=== PATIENT | female | born 1985 | race African-American/Black ===

== ENCOUNTER 2020-06-26 05:20 | Inpatient (IN) | payer BC, SELFPAY ==
[2020-06-26] VITALS (77 sets, daily range): BP systolic 101–134; BP diastolic 51–93; PULSE 76–115; RESP 18–20; TEMP 36.6–37.1; O2SAT 100; BMI 28.9
--- NOTE | 2020-06-26 05:20 | LDADM ---
This patient, Janessa Harrison, was admitted to Labor/Delivery/Recovery 104 on 06/26/20 at 05:20. Plans for labor, pain management and were discussed with patient. Patient/family oriented to hospital policies and general routines including ID bracelet, bed and alarms, visiting hours, pain management, procedures, bathroom and other care routines, personal items, smoking policy, room service/diet and guest tray routines, infant security routines, and visiting hours. Patient/Family are encouraged to report perceived risks to care and to ask questions if they do not understand what they are told or what they should do. See OBIX for further documentation.
[2020-06-26 05:58] LABS: Basophils Percent Auto 0.3 % (0.2-1.2); Eosinophils Absolute Auto 0.1 K/mm3 (0-0.3); Eosinophils Percent Auto 1.4 % (0-4.4); Hematocrit 35.2 % (37.0-47.0); Hemoglobin 12.1 g/dL (12.0-15.0); Immature Granulocyte Absolute 0.06 K/mm3 (0.00-0.031); Immature Granulocyte Percent A 0.6 % (0-0.5); Lymphocytes Absolute Auto 2.54 K/mm3 (0.9-3.2); Lymphocytes Percent Auto 24.8 % (18.3-44.2); Mean Corpuscular HGB Conc 34.4 g/dl (32-36); Mean Corpuscular Hemoglobin 32.5 pg (26-34); Mean Corpuscular Volume 94.6 fl (80-100); Mean Platelet Volume 10.5 fl (7.4-10.4); Monocytes Absolute Auto 0.7 K/mm3 (0.1-0.6); Monocytes Percent Auto 6.5 % (2.6-8.5); Neutrophils Absolute Auto 6.8 K/mm3 (1.3-6.7); Neutrophils Percent Auto 66.4 % (45.5-73.1); Platelet Count Result 226 k/mm3 (150-375); Red Blood Count 3.72 M/mm3 (4.2-5.4); Red Cell Distribution Width 12.4 % (11.5-14.5); White Blood Count 10.3 K/mm3 (4.5-10.0)
[2020-06-26] MEDS: LACTATED RINGERS 1,000 ML 125 ML IV CONT ×2 (06:00→12:40)
[2020-06-26] MEDS: AMPICILLIN 2 GM/NS 100 ML 2 GM/100 ML BAG IVPB (06:01)
[2020-06-26] MEDS: OXYTOCIN 30 UNITS/NS 500 ML 30 UNITS/500 ML BAG IV CONT (06:15)
--- NOTE | 2020-06-26 07:50 | WPDOBADMIT ---
Obstetrics - Admit Note Admission Note: record reviewed. No pertinent additions to the history and/or any subsequent changes in the physical findings that are not consistent with the expected course of the were found. Additions to the history and/or subsequent changes in the physical findings follow. Here for MIL. Cervix 1-2/50/-2 AROM with clear fluid. FHTs reactive
--- NOTE | 2020-06-26 07:56 | P.PNAN_ITS ---
Anes - Eval Pre Procedure Procedure: labor epidural Date/Time: 06/26/20 07:56 Surgeon: fidel Preop Diagnosis: pain during labor Pre Op Diagnosis: IOL Patient Data Age: 34 Gender: F Height: 1.57 m Weight: 71.8 kg Last Vital Signs Temp 36.8 C 06/26/20 05:36 Pulse 86 06/26/20 07:46 Resp 20 06/26/20 05:36 BP 124/74 06/26/20 07:46 Allergies Allergy/AdvReac Type Severity Reaction Status Date / Time No Known Allergies Allergy Verified 05/29/20 15:26 Home Medications Medication Instructions Recorded Confirmed Type xwspdctjez-stmqsmvybwtyv-wzde 1 tablet PO Q4H PRN 05/29/20 06/26/20 History [Fioricet] ergocalciferol (vitamin D2) 1,250 mcg PO WEEKLY 05/29/20 06/26/20 History [Vitamin D2] ferrous sulfate 325 mg PO DAILY 05/29/20 06/26/20 History prenat.vits,bert,owk-xelj-xfkdb 1 tablet PO DAILY 05/29/20 06/26/20 History [ #2] Laboratory Tests 06/26/20 06/26/20 06/26/20 05:51 05:51 06:16 WBC 10.3 K/mm3 H K/mm3 (4.5-10.0) RBC 3.72 M/mm3 L M/mm3 (4.2-5.4) Hgb 12.1 g/dL g/dL (12.0-15.0) Hct 35.2 % L % (37.0-47.0) MCV 94.6 fl fl (80-100) MCH 32.5 pg pg (26-34) MCHC 34.4 g/dl g/dl (32-36) RDW 12.4 % % (11.5-14.5) Plt Count 226 k/mm3 k/mm3 (150-375) MPV 10.5 fl H fl (7.4-10.4) Immature Gran % (Auto) 0.6 % H % (0-0.5) Neut % (Auto) 66.4 % % (45.5-73.1) Lymph % (Auto) 24.8 % % (18.3-44.2) Perkins % (Auto) 6.5 % % (2.6-8.5) Eos % (Auto) 1.4 % % (0-4.4) Baso % (Auto) 0.3 % % (0.2-1.2) Lymph # (Auto) 2.54 K/mm3 K/mm3 (0.9-3.2) Perkins # (Auto) 0.7 K/mm3 H K/mm3 (0.1-0.6) Eos # (Auto) 0.1 K/mm3 K/mm3 (0-0.3) Baso # (Auto) 0.0 K/mm3 K/mm3 (0.0-0.1) Abs Immat Gran (auto) 0.06 K/mm3 H K/mm3 (0.00-0.031) Absolute Neuts (auto) 6.8 K/mm3 H K/mm3 (1.3-6.7) Absolute Nucleated RBC 0.0 K/mm3 K/mm3 (0.0-0.012) Nucleated RBC % 0.0 % % (0.0-0.2) RPR Pending Blood Type A Positive Antibody Screen Negative Patient hx anesthesia problems: none Family hx anesthesia problems: none PMFSH Past Medical History Medical History (Updated 06/26/20 @ 07:57 by Jessenia Helms CRNA) Intrauterine Family History Family History Father Diabetes mellitus Hypertension High cholesterol Social History Social History Smoking status: Never smoker Substance use: never Spiritual care concerns: No Exam Day of Procedure 06/26/20 07:56
[2020-06-26] MEDS: AMPICILLIN 1 GM/NS 50 ML 1 GM/50 ML BAG IVPB ×2 (09:37→15:00)
[2020-06-26] MEDS: fentaNYL CITRATE INJ (*CRX) 100 MCG/2 ML VIAL 50 MCG IV PUSH ×2 (10:19→11:24)
[2020-06-26 10:49] LABS: Rapid Plasma Reagin Non-Reactive (NonReactive)
[2020-06-26] MEDS: ONDANSETRON INJ 4 MG/2 ML VIAL IV PUSH (12:39)
--- NOTE | 2020-06-26 16:21 | PM.OBPRVD ---
OB - Delivery Note Procedure Delivery date: 06/26/20 Procedure: events: Labor Induction Intrapartal events: None Induction method: AROM and per pitocin protocol Delivery monitor: external FHT and external uterine Route of delivery: Laceration Description: Vaginal - 2nd Degree and Labial (button hole 1 cm right labia majora upper) Delivery repair: vicryl (3-0 and 4-0 vicryl) Specimen: No Quantitative Blood Loss (ml): 106 Anesthesia type: Epidural Disposition: floor Baby Date of : 06/26/20 Weeks of gestation at delivery: 39 gender: Female Weight (pounds): 7 presentation: vertex position: Right Occiput Anterior Placenta delivery description: Spontaneous cord vessel description: 3 Vessels and Nuchal Cord (delivered through) score one minute: 8 score five minutes: 9
--- NOTE | 2020-06-26 16:23 | P.DS_ITS ---
DS: Admitting Diagnosis Admitting Diagnosis Admitting Diagnosis: IUP 39 08/22 [facility] DS: Discharge Diagnosis Discharge Diagnosis (1) 39 weeks gestation of : Code(s): Z3A.39 - 39 weeks gestation of Status: Acute (2) (normal spontaneous vaginal delivery): Code(s): O80 - Encounter for full-term uncomplicated delivery Status: Acute OB - DS: Summary OB Procedures : Ultrasound OB Procedures Intrapartum: Spontaneous Vag Delivery OB Procedures: : None Peripartum Data Delivery Method: Natural Vaginal Laceration Description: Vaginal - 1st Degree and Labial (button hole to upper R labia majora) complications: none Status at Discharge Functional status at discharge: independent ambulation Overall status at discharge: patient is progressing back to baseline Time Spent with Patient Time attestation: Total time spent providing and/or coordinating discharge services: DS: Data Data Completed and Pending Labs on day of discharge: Labs from last 24 hours 06/26/20 06/26/20 06/26/20 06:16 05:51 05:51 WBC 10.3 H RBC 3.72 L Hgb 12.1 Hct 35.2 L MCV 94.6 MCH 32.5 MCHC 34.4 RDW 12.4 Plt Count 226 MPV 10.5 H Immature Gran % (Auto) 0.6 H Neut % (Auto) 66.4 Lymph % (Auto) 24.8 Harmon % (Auto) 6.5 Eos % (Auto) 1.4 Baso % (Auto) 0.3 Lymph # (Auto) 2.54 Harmon # (Auto) 0.7 H Eos # (Auto) 0.1 Baso # (Auto) 0.0 Abs Immat Gran (auto) 0.06 H Absolute Neuts (auto) 6.8 H Absolute Nucleated RBC 0.0 Nucleated RBC % 0.0 RPR Non-reactive Blood Type A Positive Antibody Screen Negative Discharge Plan Discharge Attending physician on discharge: Kimberlyn Alcocer Discharging Clinician: Kimberlyn Alcocer Anticipated Discharge Date/Time: 06/28/20 16:25 Patient Disposition: Home, Self-Care Activity: may shower and pelvic rest Diet: regular Patient Instructions: Antibiotic Form Stand Alone Forms: General Discharge Information Follow-up/Referrals: Kimberlyn Alcocer MD [Physician] - 6 Weeks Discharge Medications: Continued uslmauyftn-gosqelavhgiyj-rcej [Fioricet] 50-325-40 mg Tablet 1 tablet PO Q4H PRN (Reason: Headache) RF: 0 ferrous sulfate 325 mg (65 mg iron) Tablet 325 mg PO DAILY RF: 0 ergocalciferol (vitamin D2) [Vitamin D2] 1,250 mcg (50,000 unit) Capsule 1,250 mcg PO WEEKLY RF: 0 #2 Tablet 1 tablet PO DAILY RF: 0 Date of admission: 06/26/20 05:20 Primary Care Provider: RereBrandon Admitting Provider: Kimberlyn lAcocer Attending physician on admission: Kimberlyn Alcocer Condition: Stable Care Plan Goals: Plans Jarred for
[2020-06-26] MEDS: OXYTOCIN 30 UNITS/NS 500 ML 30 UNITS/500 ML BAG 125 UNITS IV CONT (16:30)
[2020-06-26] MEDS: IBUPROFEN 600 MG TABLET PO (18:17)
[2020-06-26] MEDS: BENZOCAINE 20% AER SPR (*SP) 56 GM CAN 1 SPRAY TOPICAL (18:18)
[2020-06-26] MEDS: WITCH HAZEL 40 PADS 1 PAD TOPICAL (18:18)
--- NOTE | 2020-06-26 19:15 | OBPPTRN ---
Patient transferred to post room #287 via wheelchair with baby in bassinet. Support person present. Oriented to unit, room, information board, rooming in, admission packet and security measures. Patient verbalizes understanding.
[2020-06-26] MEDS: ACETAMINOPHEN 325 MG TABLET 650 MG PO (21:39)
[2020-06-27] MEDS: IBUPROFEN 600 MG TABLET PO ×2 (04:21→17:29)
[2020-06-27 06:02] LABS: Hematocrit 30.2 % (37.0-47.0); Hemoglobin 10.4 g/dL (12.0-15.0)
--- NOTE | 2020-06-27 07:33 | WPDANLDPN2 ---
Anes-Prog Note L&D Date/Time: 06/27/20 07:33 Comfortable throughout: labor and delivery Neuraxial method: epidural Epidural/Spinal procedure site: clean & non-tender Neuro status: Neuro function grossly intact. Cardiovascular status: normal Respiratory status: normal Airway patency: baseline Mental status: baseline Post-Op hydration status: normal Vital Signs: Last Vital Signs Temp 36.7 C 06/26/20 19:25 Pulse 81 06/26/20 19:25 Resp 18 06/26/20 19:25 BP 113/73 06/26/20 19:25 Pulse Ox 100 06/26/20 19:25 Pain score (VAS): 0 I/O: Intake & Output 06/26/20 06/26/20 06/27/20 15:59 23:59 07:59 Intake Total 1050 Output Total 206 Balance 1050 -206 Post-procedural complaints: none Patient feedback: Patient satisfied with anesthetic care.
[2020-06-27 08:00] VITALS: BP 109/66; PULSE 85; RESP 16; TEMP 37.1; O2SAT 100
--- NOTE | 2020-06-27 08:00 | PC.NURSE ---
PT introductions made and plan of care discussed per post , pain management, breast pumping, bottle feeding, daily care activities. PT verbalized understanding of such care.
--- NOTE | 2020-06-27 08:39 | PC.NURSE ---
0815 Breast feeding note; visited with this patient; she states she wants to only pump and bottle feed, not put baby to breast. Nurse affirmed her decision, with explanation of importance of starting pumping now, and continue consistent pumping at each of baby's feedings. She agreed. Pt was set up with pump; shown set-up, explained cleaning of equipment. Assessed pt to be comfortable with 24mm flanges. Reviewed with her use, and collection of breast milk even in small amounts. Pt attentive and voiced understanding. She had no questions for nurse at this time.
[2020-06-27 09:40] VITALS: PULSE 85; RESP 16; O2SAT 100
[2020-06-27] MEDS: DOCUSATE SODIUM 100 MG CAPSULE PO ×2 (09:44→17:29)
[2020-06-27] MEDS: MULTIVIT/MIN/PREN/FOL AC/IRON TABLET 1 TAB PO (09:45)
[2020-06-27] MEDS: ACETAMINOPHEN 325 MG TABLET 650 MG PO ×2 (09:45→17:29)
--- NOTE | 2020-06-27 18:29 | PM.OBPNVD ---
OB - PN: Subj Subjective Date/time seen: 06/27/20 18:29 doing well no complaints OB - PN: Obj Data Labs CBC & Chem 7: 06/27/20 04:17 Labs: Laboratory Results - last 24 hr 06/27/20 04:17 Hgb 10.4 L Hct 30.2 L OB - PN A/P Assessment and Plan (1) (normal spontaneous vaginal delivery): Code(s): O80 - Encounter for full-term uncomplicated delivery Status: Acute Assessment and Plan: continue with pp care. Time Spent With Patient Time: Total time spent is greater than 50% in coordination of care (as documented) at patient's floor/unit and/or counseling patient: Exam GI: Other: ff below umbilicus
[2020-06-27 20:15] VITALS: BP 97/56; PULSE 95; RESP 16; TEMP 36.7; O2SAT 98
[2020-06-28] MEDS: IBUPROFEN 600 MG TABLET PO ×2 (04:40→09:48)
--- NOTE | 2020-06-28 07:59 | PM.OBPNVD ---
OB - PN: Subj Subjective Date/time seen: 06/28/20 07:59 Patient comments: no complaints and pain well controlled baby status: doing well OB - PN: Obj Data Labs CBC & Chem 7: 06/27/20 04:17 OB - PN A/P Plan day: 2 Plan: routine care, discharge home and follow up 6 weeks Comments: Plans Mirena Time Spent With Patient Time: Total time spent is greater than 50% in coordination of care (as documented) at patient's floor/unit and/or counseling patient: Exam : Bimanual exam- vagina & uterus: other (Uterus firm, nt @U)
--- NOTE | 2020-06-28 08:45 | PC.NURSE ---
PT introductions made and plan of care discussed per post , pain management, breast pumping, bottle feeding, daily care activities and pending discharge to home. PT verbalized understanding of such care.
[2020-06-28] MEDS: DOCUSATE SODIUM 100 MG CAPSULE PO (09:48)
[2020-06-28] MEDS: MULTIVIT/MIN/PREN/FOL AC/IRON TABLET 1 TAB PO (09:48)
[2020-06-28] MEDS: ACETAMINOPHEN 325 MG TABLET 650 MG PO (09:49)
--- NOTE | 2020-06-28 09:49 | PC.NURSE ---
Patient viewed the discharge video Mother & Baby Care, The First Two Weeks . Patient was given the opportunity and encouraged to ask questions. Patient verbalized understanding of information shared and has been given the mother/baby guide for home reference.
[2020-06-28 10:31] VITALS: BP 99/52; PULSE 72; RESP 18; TEMP 36.5; O2SAT 99
--- NOTE | 2020-06-28 11:45 | PC.NURSE ---
PT received discharge instructions per protocol and verbalized understanding of such care.
--- NOTE | 2020-06-28 12:33 | PC.NURSE ---
PT discharged to home ambulatory accompanied by fob and infant to waiting car. Follow up appts confirmed.
[2020-06-29 10:11] VITALS: BP 108/68; PULSE 78; RESP 16; TEMP 36.6; O2SAT 100
== END 2020-06-28 12:33 | disposition home or self-care (01) | DRG 807 ==
LOC: ANHLDR 16:26 → ANHOB2 19:42
PROVIDERS: Admitting Provider Obstetrics & Gynecology Gynecology; PCP Physician Assistant; Visit Provider Obstetrics & Gynecology Gynecology
DX: O99.02 Anemia complicating childbirth (principal); Z37.0 Single live birth; Z3A.39 39 weeks gestation of pregnancy; D57.3 Sickle-cell trait; O69.81X0 Labor and delivery complicated by cord around neck, without compression, not applicable or unspecified; O70.1 Second degree perineal laceration during delivery; O99.824 Streptococcus B carrier state complicating childbirth
CPT/HCPCS: 36415; 85014; 85018; 85025; 86592; 86850; 86900; 86901; A9270; J0290; J2405; J2590; J2795; J3010; J7120